=== PATIENT | female | born 1985 | race Caucasian/White ===

== ENCOUNTER 2024-03-08 21:08 | Emergency (ER) | payer OTHER ==
[~2024-03-08] VITALS: Ht 157.5 cm; Wt 80.0 kg
[~2024-03-08 21:08] MED LIST: BENTYL10 MG PO; BUSPIRONE HCL7.5 MG PO; CITALOPRAM HBR10 MG PO; CRANBERRY200 MG; DEPO-PROVE150 MG/1 M IM; HYDROXYZINE PAM25 MG PO; KEFLEX500 MG PO; KLONOPIN1 MG PO; MACROBID 100 M100 MG PO; NORCO 5-325 TA1 EACH PO; OXYCODONE-ACET1 EAC1 PO; PERCOCET 5-3251 EACH PO; PRENATAL FORMU1 EACH PO; PYRIDIUM200 MG PO; REGLAN10 MG PO; SEPTRA DS TABL1 EACH PO; SULFAMETHOXAZO1 EAC1 PO; TRAMADOL HCL50 MG PO; VANCOCIN HCL125 MG PO; VITAMIN D5000 UNIT PO; ZOFRAN ODT4 MG SL; ZOFRAN8 MG PO
[2024-03-08 21:53] VITALS: BP 140/77
--- NOTE | 2024-03-10 19:39 | EKG ---
[facility] [address] [place], [place] [address] Signed Normal sinus rhythm Normal ECG No previous ECGs available Confirmed by Maegan Mohan MD ([id number]) on 03/10/2024 7:39:38 PM Electronically Signed By: MAEGAN MOHAN MD 03/10/241938 PATIENT NAME: FRANCHESKA COFFEY Electrocardiogram DATE OF : 89 PHYSICIAN: MAEGAN MOHAN MD REPORT #: [id number] REPORT IS CONFIDENTIAL AND NOT TO BE RELEASED WITHOUT AUTHORIZATION
== END 2024-03-08 21:53 | disposition left against medical advice (07) ==
LOC: ED 21:08
DX: R07.9 Chest pain, unspecified (principal); M54.9 Dorsalgia, unspecified; M25.511 Pain in right shoulder; Z53.21 Procedure and treatment not carried out due to patient leaving prior to being seen by health care provider
CPT/HCPCS: 93005; 93010